=== PATIENT | male | born 1985 | race Two or more races ===

== ENCOUNTER 2021-10-20 04:33 | Day surgery (SDC) | payer OTHER ==
[2021-10-15 17:20] VITALS: BMI 26.6
[2021-10-20] MEDS ORDERED: PROPOFOL 20 ML ONE ×2 (12:14)
[2021-10-20] MEDS ORDERED: MIDAZOLAM HCL 2 MG/2 ML SINGLE DOSE VIAL ONE (12:14)
[2021-10-20] MEDS ORDERED: ceFAZolin 2 GRAM PREMIX BAG IVPB ONE (12:15)
[2021-10-20 12:54] VITALS: PULSE 60
[2021-10-20 14:29] VITALS: BP 126/80; TEMP 97.8
== END 2021-10-20 14:25 | disposition home or self-care (01) ==
LOC: JASU-SURG 04:33
PROVIDERS: ATTEND Urology
PROC: 0TF3XZZ Fragmentation in Right Kidney Pelvis, External Approach (ICD-10-PCS; principal; 2021-10-20 11:15)
DX: N20.0 Calculus of kidney (principal)

== ENCOUNTER 2022-09-07 04:12 | Day surgery (SDC) | payer OTHER ==
[2022-09-02 17:54] VITALS: BMI 26.6
[2022-09-07 08:52] VITALS: RESP 18
[2022-09-07] MEDS ORDERED: MIDAZOLAM HCL 2 MG/2 ML SINGLE DOSE VIAL ONE (10:52)
[2022-09-07] MEDS ORDERED: ONDANSETRON 4 MG/2 ML VIAL ONE (11:18)
[2022-09-07 12:13] VITALS: BP 131/82; PULSE 58; TEMP 97.5
== END 2022-09-07 12:14 | disposition home or self-care (01) ==
LOC: JASU-SURG 04:12
PROVIDERS: ATTEND Urology
PROC: 0TF3XZZ Fragmentation in Right Kidney Pelvis, External Approach (ICD-10-PCS; principal; 2022-09-07 10:30)
DX: N20.0 Calculus of kidney (principal)

== ENCOUNTER 2024-05-07 09:42 | Emergency (ER) | payer OTHER ==
[2024-05-07 09:47] VITALS: BP 151/92; PULSE 79; RESP 18; TEMP 98.7; BMI 26.3
== END 2024-05-07 11:38 | disposition home or self-care (01) ==
LOC: JER 09:42
DX: R51.9 Headache, unspecified (principal); M54.2 Cervicalgia; V49.40XA Driver injured in collision with unspecified motor vehicles in traffic accident, initial encounter
CPT/HCPCS: 99283-25